=== PATIENT | female | born 1990 | race American Indian/Alaskan Native ===

== ENCOUNTER 2017-10-08 12:50 | Emergency (ER) | payer MEDICAID ==
[2017-10-08] MEDS ORDERED: ZOFRAN IV ONE (16:02)
[2017-10-08] MEDS ORDERED: TORADOL IV ONE (16:02)
[2017-10-08] MEDS ORDERED: NACL 0.9% 500 ML 500 ML ONE (16:11)
[2017-10-08] MEDS ORDERED: NACL 0.9% 500 ML 500 ML IV ONE (16:23)
[2017-10-08 17:08] LABS: Hematocrit 26.6 % (30.3-42.9); Hemoglobin 7.9 gm/dl (10.1-14.3); Mean Corpuscular HGB Conc 30 % (30-34); Mean Corpuscular Volume 73 fl (79-97); Platelet Count 426 K/mm3 (140-440); Red Blood Count 3.63 M/mm3 (3.65-5.03)
[2017-10-08 17:12] LABS: Mean Corpuscular Hemoglobin 22 pg (28-32)
[2017-10-08 18:01] LABS: Basophils % (Manual) 0 % (0.0-1.8); Eosinophils % (Manual) 0 % (0.0-4.3); Total Cells Counted 100
[2017-10-08 18:02] LABS: Anisocytosis 1+; Helmet Cells Rare
[2017-10-08 18:14] LABS: Bilirubin,Urine NEG (Negative); Blood,Urine MOD (Negative); Color,Urine Red (Yellow); Nitrite,Urine NEG (Negative); Protein,Urine >500 mg/dL (Negative); RBC,Urine > 182.0 /HPF (0.0-6.0); Urobilinogen,Urine < 2.0 mg/dL (<2.0)
--- NOTE | 2017-10-08 19:20 | Ultrasound Report ---
FINAL REPORT EXAM: US OB < = 14 WEEKS FETUS HISTORY: Passed clot TECHNIQUE: Real-time sonography was performed of the gravid uterus transabdominally and endovaginally and images are submitted for interpretation. PRIORS: None. FINDINGS: The uterus measures 10.3 x 4.9 x 5.2 cm. There is no evidence of IUP. The endometrium is thickened at 2.3 cm. Color Doppler does not show significant hypervascularity of the endometrium. The left ovary appears normal measuring 2.6 x 1.5 x 2.3 cm. The right ovary was not seen. IMPRESSION: No evidence of IUP. Endometrial thickening without strong evidence of retained products of conception. An intrauterine has not been confirmed and ectopic has not been excluded. Close clinical follow-up, serial quantitative beta HCG levels and follow-up ultrasound recommended.
--- NOTE | 2017-10-08 19:21 | Ultrasound Report ---
FINAL REPORT EXAM: US OB TRANSVAGINAL HISTORY: Passed clot TECHNIQUE: Real-time sonography was performed of the gravid uterus transabdominally and endovaginally and images are submitted for interpretation. PRIORS: None. FINDINGS: The uterus measures 10.3 x 4.9 x 5.2 cm. There is no evidence of IUP. The endometrium is thickened at 2.3 cm. Color Doppler does not show significant hypervascularity of the endometrium. The left ovary appears normal measuring 2.6 x 1.5 x 2.3 cm. The right ovary was not seen. IMPRESSION: No evidence of IUP. Endometrial thickening without strong evidence of retained products of conception. An intrauterine has not been confirmed and ectopic has not been excluded. Close clinical follow-up, serial quantitative beta HCG levels and follow-up ultrasound recommended.
--- NOTE | 2017-10-08 20:37 | Emergency Department Report ---
ED HPI - General Chief complaint: Vaginal Bleeding Stated complaint: MISCARRIAGE Time Seen by Provider: 10/08/17 19:47 Source: patient Mode of arrival: Ambulatory Limitations: No Limitations - History of Present Illness Initial comments: This is a 27-year-old patient who presents to the emergency room with vaginal bleeding. She states that she is . Today she stated that she began to have excessive vaginal bleeding and feels that she is losing the baby. She is still in the first trimester. She also admits to nausea and vomiting with some generalized abdominal pain. She has a history of diabetes. She also has had a gallbladder removed. MD Complaint: abdominal pain, vaginal bleeding -: Gradual, days(s) (1 day) Location: pelvis, abdomen Radiation: none Severity: moderate Quality: cramping, aching Consistency: intermittent Improves with: none Worsens with: none Associated symptoms: nausea/vomiting, vaginal bleeding, abdominal pain Vaginal bleeding: heavy, clots :: Yes Number of weeks : 12 OB History - Current : no complications Pre- care: followed by OB - Related Data : 2 Para: 0 Ab: 1 Previous Rx's Medication Instructions Recorded Last Taken Type Acetaminophen/Codeine [Tylenol #3] 1 tab PO Q6H PRN #15 tab 12/18/15 Unknown Rx Ibuprofen [Motrin 800 MG tab] 800 mg PO Q8HR PRN #30 tablet 12/18/15 Unknown Rx Doxycycline [Vibramycin CAP] 100 mg PO Q12HR #20 capsule 10/08/17 Unknown Rx Misoprostol 400 mcg PO Q4HR #4 tablet 10/08/17 Unknown Rx traMADol [Ultram 50 MG tab] 50 mg PO Q6HR PRN #10 tablet 10/08/17 Unknown Rx Allergies Allergy/AdvReac Type Severity Reaction Status Date / Time No Known Allergies Allergy Verified 12/18/15 01:19 ED Review of Systems ROS: Stated complaint: MISCARRIAGE Other details as noted in HPI Constitutional: see HPI. denies: chills, fever Eyes: denies: eye pain, eye discharge, vision change ENT: denies: ear pain, throat pain Respiratory: denies: cough, shortness of breath, wheezing Cardiovascular: denies: chest pain, palpitations Endocrine: no symptoms reported Gastrointestinal: abdominal pain, nausea, vomiting. denies: diarrhea Genitourinary: denies: urgency, dysuria, discharge Musculoskeletal: denies: back pain, joint swelling, arthralgia Skin: denies: rash, lesions Neurological: denies: headache, weakness, paresthesias Psychiatric: denies: anxiety, depression Hematological/Lymphatic: denies: easy bleeding, easy bruising ED Past Medical Hx - Past Medical History Hx Diabetes: Yes Hx Kidney Stones: Yes Additional medical history: Anemia - Surgical History Hx Cholecystectomy: Yes - Social History Smoking Status: Never Smoker Substance Use Type: None - Medications Home Medications: Home Medications Medication Instructions Recorded Confirmed Last Taken Type Acetaminophen/Codeine [Tylenol #3] 1 tab PO Q6H PRN #15 tab 12/18/15 Unknown Rx Ibuprofen [Motrin 800 MG tab] 800 mg PO Q8HR PRN #30 tablet 12/18/15 Unknown Rx Doxycycline [Vibramycin CAP] 100 mg PO Q12HR #20 capsule 10/08/17 Unknown Rx Misoprostol 400 mcg PO Q4HR #4 tablet 10/08/17 Unknown Rx traMADol [Ultram 50 MG tab] 50 mg PO Q6HR PRN #10 tablet 10/08/17 Unknown Rx ED Physical Exam - General Limitations: No Limitations General appearance: alert, in no apparent distress - Head Head exam: Present: atraumatic, normocephalic - Eye Eye exam: Present: normal appearance, PERRL, EOMI - ENT ENT exam: Present: normal exam - Neck Neck exam: Present: normal inspection - Respiratory Respiratory exam: Present: normal lung sounds bilaterally - Cardiovascular Cardiovascular Exam: Present: regular rate, normal rhythm - GI/Abdominal GI/Abdominal exam: Present: soft, normal bowel sounds - Extremities Exam Extremities exam: Present: normal inspection, full ROM - Back Exam Back exam: Present: normal inspection, full ROM - Neurological Exam Neurological exam: Present: alert, oriented X3 - Psychiatric Psychiatric exam: Present: normal affect, normal mood - Skin Skin exam: Present: warm, dry, intact ED Course Vital Signs 10/08/17 15:55 Temperature 97.4 F L Pulse Rate 88 Respiratory 16 Rate Blood Pressure 107/67 O2 Sat by Pulse 100 Oximetry - Reevaluation(s) Reevaluation #1: 10/08/17 20:47 I reviewed the findings of the ultrasound with the patient. There is no viable intrauterine at this time. I explained that her hemoglobin count was also low at 7.9. I'm awaiting a callback from the [facility] personnel records clerk [employer] physician. 10/08/17 22:28 I discussed the case with the [facility] [employer] physician. He stated that the patient on Cytotec 400 mg by mouth here in the ER and then every 4 hours for 2 more doses. We will also start the patient on doxycycline 100 mg by mouth twice a day for 10 days. For pain we'll give her tramadol to use when necessary. She is to follow-up with her [facility] clinic next week. She has any other concerns then she may return to the emergency room as needed. With regards to her leukocytosis and her anemia, the doxycycline will be given for the leukocytosis and the anemia is apparently something that she has chronically. If her bleeding persist then it is advised that she returns to the ER accordingly. ED Medical Decision Making - Lab Data Result diagrams: 10/08/17 16:46 10/08/17 16:46 Critical care attestation.: If time is entered above; I have spent that time in minutes in the direct care of this critically ill patient, excluding procedure time. ED Disposition Clinical Impression: Inevitable complete miscarriage without complication, Inevitable spontaneous Anemia Qualifiers: Anemia type: other cause Other causes of anemia: acute posthemorrhagic Qualified Code(s): D62 - Acute posthemorrhagic anemia Disposition: - TO HOME OR SELFCARE Is pt being admited?: No Does the pt Need Aspirin: No Condition: Stable Instructions: Spontaneous Miscarriage (ED), Misoprostol (By mouth) Additional Instructions: YOU MUST TAKE YOUR PRESCRIPTION TO GET FILLED TONIGHT AND TAKE 2 TABLETS FOUR HOURS APART. FOLLOW UP WITH YOUR OB PHYSICIAN NEXT WEEK. Prescriptions: Doxycycline [Vibramycin CAP] 100 mg PO Q12HR #20 capsule Misoprostol 400 mcg PO Q4HR #4 tablet traMADol [Ultram 50 MG tab] 50 mg PO Q6HR PRN #10 tablet PRN Reason: Pain Referrals: PRIMARY CARE,MD [Primary Care Provider] - 3-5 Days
[2017-10-08 21:30] LABS: Alanine Aminotransferase 24 units/L (7-56); Albumin 4.7 g/dL (3.9-5); BUN/Creatinine Ratio 14; Blood Urea Nitrogen 7 mg/dL (7-17); Calcium 9.8 mg/dL (8.4-10.2); Hemolysis Index 2
--- NOTE | 2017-10-08 22:14 | Short Stay Summary ---
Short Stay Documentation Date of service: 10/08/17 Narrative H&P: C/O: Vaginal bleeding Asked to see this 27-year-old at 11+5 weeks by LMP who presents with vaginal bleeding and painful cramps this a.m. She is a [employer] patient has had only 1 visit to clinic. She had an ultrasound in the clinic with no IUP seen, she is unsure of her beta-hCG. In the emergency room, her vitals have been stable. Her hemoglobin is 8 Ultrasound obtained shows no IUP, beta-hCG is ~ 1600 She denies any prior history of ectopic, no history of tubal surgery or STDs per patient She is a smoker Not on control Gynhx:No STD, s/p TAB # 2 Medhx:None Sughx:Cholecystectomy Obhx:As above Meds:None ALL:NKDA ROS: Still having painful contractions On speculum exam, she has obvious products of conception protruding from the cervix filling the vagina A: SAB P: -Was able to evacuate some products of conception during my exam with the speculum, no active bleeding noted afterwards. -Patient will receive 400 g misoprostol now then 400 g every 4 hours 2 more doses. -Doxycycline 100mg BID x 10 days -She will follow up in clinic -Discussed above with ED physician - History Past Medical History: No medical history Past Surgical History: cholecystectomy Social history: single, smoking, no prescription drug abuse, no IV drug use - Allergies and Medications Current Medications: Allergies No Known Allergies Allergy (Verified 12/18/15 01:19) Home Medications Medication Instructions Recorded Confirmed Last Taken Type Acetaminophen/Codeine [Tylenol #3] 1 tab PO Q6H PRN #15 tab 12/18/15 Unknown Rx Ibuprofen [Motrin 800 MG tab] 800 mg PO Q8HR PRN #30 tablet 12/18/15 Unknown Rx - Physical exam General appearance: no acute distress, disheveled Lungs: Clear to auscultation, Normal air movement Heart: Regular rate, Normal S1, Normal S2 Female Genitourinary: normal Extremities: no ischemia Neurological: Normal gait, Normal speech, Strength at 5/5 X4 ext - Brief post op/procedure progress note Date of procedure: 10/08/17 Pre-op diagnosis: Missed AB Post-op diagnosis: same Procedure: Removal of retained Products in the ED Anesthesia: none Findings: Parous OS with obvious protruding POC; no active bleeding Surgeon: GRETA ALVAREZ Estimated blood loss: none Pathology: list (POC) Specimen disposition: to lab Condition: stable - Disposition Condition at discharge: Stable Short Stay Discharge Plan Follow up with: PRIMARY CAREMD [Primary Care Provider] - 3-5 Days
[2017-10-08] MEDS ORDERED: CYTOTEC PO ONE (22:16)
[2017-10-08 23:34] VITALS: BP 118/66
== END 2017-10-08 23:39 | disposition home or self-care (01) ==
LOC: ED 12:50
DX: O03.9 Complete or unspecified spontaneous abortion without complication (principal); O21.9 Vomiting of pregnancy, unspecified; D62 Acute posthemorrhagic anemia; D64.9 Anemia, unspecified; R11.2 Nausea with vomiting, unspecified; E11.9 Type 2 diabetes mellitus without complications
CPT/HCPCS: 36415; 76801; 76817; 80053; 81001; 84702; 85007; 85025; 86850; 86870; 86900; 86901; 96361; 96374; 96375; 99284; J1885; J2405; J7040

== ENCOUNTER 2018-09-25 18:40 | Inpatient (IN) | payer OTHER ==
[2018-09-25] MEDS ORDERED: LACTATED RINGERS 1,000 ML IV SCH (20:00)
[2018-09-25] MEDS ORDERED: LACTATED RINGERS 1,000 ML ONE (20:01)
[2018-09-26] MEDS ORDERED: SUBLIMAZE IV ONE (00:06)
[2018-09-26] MEDS ORDERED: AMBIEN PO PRN (00:07)
--- NOTE | 2018-09-26 00:07 | Ultrasound Report ---
FINAL REPORT PROCEDURE: US OB LIMITED TECHNIQUE: Real-time limited sonographic examination was performed for evaluation of size, pos ition, heartbeat, fluid volume for each fetus with image documentation (1 or more fetuses). CPT 7681 5 HISTORY: well being COMPARISON: No prior studies are available for comparison. FINDINGS: There is a single fetus in a cephalic presentation. heart rate 162 beats per minute. The 4 quad rant amniotic fluid volume measurement total 10.5 centimeters. No further measurements are obtained with this study. IMPRESSION: Single fetus with a vertex presentation. Four quadrant amniotic fluid volume total 10.5 centimeter
--- NOTE | 2018-09-26 00:07 | Ultrasound Report ---
FINAL REPORT PROCEDURE: US OB BPP WO NON-STRESS TECHNIQUE: Sonographic evaluation for breathing, movement, tone, and amniotic flui d volume was performed. CPT 65056 HISTORY: well being COMPARISON: No prior studies are available for comparison. FINDINGS: Amniotic fluid volume: Normal-score 2. At least one vertical pocket >2 cm or more in vertical axis . breathing: Normal-score 2. movement: Normal-score 2. tone: Normal. Score: 8 of 8. IMPRESSION: Normal biophysical profile.
[2018-09-26] MEDS ORDERED: STADOL IV PRN (03:24)
[2018-09-26] MEDS ORDERED: SUBLIMAZE IV PRN (03:24)
[2018-09-26] MEDS: LACTATED RINGERS 1,000 ML IV SCH ×3 (03:43→19:10)
[2018-09-26 05:59] LABS: Mean Corpuscular HGB Conc 33 % (30-34); Mean Corpuscular Volume 97 fl (79-97); Platelet Count 246 K/mm3 (140-440); Red Blood Count 4.04 M/mm3 (3.65-5.03); Red Cell Distribution Width 13.2 % (13.2-15.2)
[2018-09-26] MEDS ORDERED: MINERAL OIL PO PRN (09:00)
[2018-09-26] MEDS ORDERED: BRETHINE SUB-Q PRN (09:00)
[2018-09-26] MEDS ORDERED: BRETHINE IVP PRN (09:00)
[2018-09-26] MEDS ORDERED: PITOCin/NS 20 UNIT/1000ML DRIP 20 UNITS/1,000 ML BAG IV SCH (09:00)
[2018-09-26] MEDS ORDERED: XYLOCAINE 2% INFILTRATI NR (09:00)
[2018-09-26] MEDS ORDERED: PITOCin/NS 30 UNIT/500ML 30 UNITS/500 ML BAG IV SCH ×2 (09:00)
--- NOTE | 2018-09-26 11:42 | History and Physical Report ---
History of Present Illness Date of examination: 09/26/18 (10:47) Date of admission: 09/26/18 00:13 Chief complaint: Contractions History of present illness: 28 AA Fe , MARTHA 09/30/2018 (LMP), 39weeks 2 days presents in spontaneous labor. Apositive, Rubella Immune, GBS negative Pt initiated early care with [facility] at 6 weeks. She has been co-managed with [facility] and hematology d/t being underweight and having severe anemia (FeS04 325mg QID). She has poor dentition. Past History Past Medical History: no pertinent history Past Surgical History: cholecystectomy (2014), other (EAB x2 white and by the glass every as a day last week) STUDENT SERVICES COORDINATOR History: denies: abnormal PAP smear, chlamydia, gonorrhea, hepatitis B, hepatitis C, herpes, HIV, syphilis, trichomonas Family/Genetic History: none (Adopted; no family history) Social history: single, lives with family, full code. denies: smoking, alcohol abuse, prescription drug abuse, IV drug use - Obstetrical History Expected Date of Delivery: 09/30/18 Actual Gestation: 39 Week(s) 3 Day(s) : 4 Para: 0 Hx # Term Pregnancies: 0 Number of Pregnancies: 0 Spontaneous Abortions: 1 Induced : 2 Number of Living Children: 0 Medications and Allergies Allergies Allergy/AdvReac Type Severity Reaction Status Date / Time No Known Allergies Allergy Verified 07/13/18 13:08 Home Medications Medication Instructions Recorded Confirmed Last Taken Type Ferrous Sulfate [Feosol] 325 mg PO QDAY 07/19/18 07/19/18 07/19/18 History Vit-Fe Fumar-FA [ 1 tab PO QDAY 07/19/18 07/19/18 07/19/18 History Vitamin] Active Meds: Active Medications Butorphanol Tartrate (Stadol) 2 mg IV Q3H PRN PRN Reason: Labor Pain Last Admin: 09/26/18 03:35 Dose: 2 mg Documented by: Ephedrine Sulfate (Ephedrine Sulfate) 10 mg IV Q2M PRN PRN Reason: Hypotension Fentanyl (Sublimaze) 100 mcg IV Q3H PRN PRN Reason: Labor Pain Last Admin: 09/26/18 06:16 Dose: 100 mcg Documented by: Lactated Ringer's (Lactated Ringers) 1,000 mls @ 125 mls/hr IV DIRECT JOSY Last Admin: 09/26/18 03:43 Dose: 125 mls/hr Documented by: Oxytocin/Sodium Chloride (Pitocin/Ns 20 Unit/1000ml Drip) 20 units in 1,000 mls @ 125 mls/hr IV DIRECT JOSY Oxytocin/Sodium Chloride (Pitocin/Ns 30 Unit/500ml) 30 units in 500 mls @ 1 mls/hr IV TITR JOSY; Protocol Oxytocin/Sodium Chloride (Pitocin/Ns 30 Unit/500ml) 30 units in 500 mls @ 2 mls/hr IV TITR JOSY; Protocol Last Titration: 09/26/18 10:07 Dose: 4 ml/hr, 4 mls/hr Documented by: Lidocaine (Xylocaine 2%) 20 ml INFILTRATI ONCE NR Stop: 09/27/18 08:59 Mineral Oil (Mineral Oil) 30 ml PO QHS PRN PRN Reason: Constipation Terbutaline Sulfate (Brethine) 0.25 mg SUB-Q ONCE PRN PRN Reason: Hyperstimulation/Hypertonicity Terbutaline Sulfate (Brethine) 0.25 mg IVP ONCE PRN PRN Reason: Hyperstimulation/Hypertonicity Zolpidem Tartrate (Ambien) 10 mg PO QHS PRN PRN Reason: Insomnia Last Admin: 09/26/18 01:42 Dose: 10 mg Documented by: Review of Systems Cardiovascular: no chest pain, no shortness of breath Respiratory: no shortness of breath Breasts: normal Gastrointestinal: no abdominal pain, no nausea, no vomiting, no diarrhea, no constipation Genitourinary: normal appearance, contractions, no leakage of fluid, no genital sores Integumentary: no rash, no sores (at her child), no lesions - Vital Signs Vital signs: Vital Signs Pulse BP 67 111/68 09/25/18 19:15 09/25/18 19:15 Temp Pulse Resp BP Pulse Ox 99.4 F 81 17 112/70 100 09/26/18 09:10 09/26/18 11:35 09/26/18 09:10 09/26/18 09:11 09/26/18 11:35 - Physical Exam Breasts: Positive: normal Cardiovascular: Regular rate, Normal S1, Normal S2, No murmurs Lungs: Positive: Clear to auscultation, Normal air movement Abdomen: Positive: normal appearance, soft, normal bowel sounds. Negative: distention Genitourinary (Female): Positive: normal external genitalia, normal perenium Vulva: both: normal Uterus: Positive: enlarged (gravid) Anus/Rectum: Positive: normal perianal skin Extremities: Positive: normal Deep Tendon Reflex Grade: Normal +2 - Obstetrical FHR: category 1 Uterine Contraction Monitor Mode: External Cervical Dilatation: 4 (AROM 09/26 @ 10:47; clear fluid. ) Cervical Effacement Percentage: 90 station: -2 Uterine Contraction Frequency (min): 2-6 Uterine Contraction Pattern: Regular Uterine Tone Measurement Phase: Resting Uterine Contraction Intensity: Moderate Results Result Diagrams: 09/26/18 05:36 Abnormal lab results 09/26/18 Range/Units 05:36 WBC 11.5 H (4.5-11.0) K/mm3 All other labs normal. Assessment and Plan A: Term IUP at 39w2d Category 1 tracing GBS Negative Active labor P: Admit to L&D; Routine Labor orders May have IV pain med/epidural if desires Anticipate
[2018-09-26] MEDS ORDERED: NARCAN 2 MG/2 ML IV PRN (12:04)
--- NOTE | 2018-09-26 12:10 | Anesthesia Day of Surgery ---
Anesthesia Day of Surgery - Day of Surgery Patient Examined: Yes Patient H&P Reviewed: Yes Patient is NPO: Yes Beta Blockers: No Cardiac Clearance: No Pulmonary Clearance: No
--- NOTE | 2018-09-26 12:13 | Anesthesia Consultation ---
Anesthesia Consult and Med Hx Date of service: 09/26/18 - Airway Anesthetic Teeth Evaluation: Poor (front poor denitition and missing teeth ) ROM Head & Neck: Adequate Mental/Hyoid Distance: Adequate Mallampati Class: Class II Intubation Access Assessment: Probably Good - Pulmonary Exam CTA: Yes - Cardiac Exam Cardiac Exam: No Murmur - Pre-Operative Health Status ASA Pre-Surgery Classification: ASA1, ASA2 (Anemia) Proposed Anesthetic Plan: Epidural - Pulmonary Hx Asthma: No COPD: No Hx Pneumonia: No - Cardiovascular System Hx Hypertension: No - Central Nervous System Hx Seizures: No Hx Psychiatric Problems: No - Endocrine Hx Renal Disease: No Hx End Stage Renal Disease: No Hx Hypothyroidism: No Hx Hyperthyroidism: No - Hematic Hx Anemia: Yes (iron daily) Hx Sickle Cell Disease: No - Other Systems Hx Alcohol Use: No
[2018-09-26] MEDS: fentaNYL-BUPIV 2 MCG/ML-0.125% 200 MCG/100 ML BAG EPIDURAL SCH ×2 (12:30→20:05)
--- NOTE | 2018-09-26 17:58 | Progress Note ---
Assessment and Plan A: Term IUP at 39w2d Category 1 tracing GBS Negative Active labor Comfortable with epidural Pitocin 16 mu P: Continue Routine Labor orders Anticipate Subjective - Subjective Date of service: 09/26/18 Principal diagnosis: term IUP, active labor Interval history: 28 AA Fe , MARTHA 09/30/2018 (LMP), 39weeks 2 days presents in spontaneous labor. Apositive, Rubella Immune, GBS negative Pt initiated early care with [facility] at 6 weeks. She has been co-managed with [facility] and hematology d/t being underweight and having severe anemia (FeS04 325mg QID). She has poor dentition. Patient reports: loss of fluid, vaginal bleeding, movement normal, contractions Objective - Vital Signs Vital Signs: Vital Signs - 12hr 09/26/18 09/26/18 09/26/18 09:10 09:11 11:35 Temperature 99.4 F Pulse Rate 80 81 Respiratory 17 Rate Blood Pressure 112/70 O2 Sat by Pulse 100 Oximetry 09/26/18 09/26/18 09/26/18 11:40 11:43 11:45 Temperature Pulse Rate 69 68 64 Respiratory Rate Blood Pressure 152/86 137/83 O2 Sat by Pulse 97 98 Oximetry 09/26/18 09/26/18 09/26/18 11:46 11:49 11:50 Temperature Pulse Rate 65 71 67 Respiratory Rate Blood Pressure 139/85 127/83 O2 Sat by Pulse 98 Oximetry 09/26/18 09/26/18 09/26/18 11:55 11:57 12:00 Temperature Pulse Rate 77 72 103 H Respiratory Rate Blood Pressure 114/56 O2 Sat by Pulse 96 100 Oximetry 09/26/18 09/26/18 09/26/18 12:05 12:10 12:14 Temperature Pulse Rate 91 H 99 H 66 Respiratory Rate Blood Pressure 110/52 O2 Sat by Pulse 99 96 Oximetry 09/26/18 09/26/18 09/26/18 12:15 12:18 12:20 Temperature Pulse Rate 74 60 71 Respiratory Rate Blood Pressure O2 Sat by Pulse 100 93 99 Oximetry 09/26/18 09/26/18 09/26/18 12:25 12:30 12:35 Temperature Pulse Rate 65 90 60 Respiratory Rate Blood Pressure O2 Sat by Pulse 100 100 100 Oximetry 09/26/18 09/26/1809/26/19 12:37 12:40 12:45 Temperature Pulse Rate 67 62 61 Respiratory Rate Blood Pressure 113/86 O2 Sat by Pulse 93 99 98 Oximetry 09/26/18 09/26/18 09/26/18 12:50 12:55 13:00 Temperature 99.1 F Pulse Rate 66 62 67 Respiratory 17 Rate Blood Pressure O2 Sat by Pulse 99 97 97 Oximetry 09/26/18 09/26/18 09/26/18 13:05 13:08 13:10 Temperature Pulse Rate 83 70 65 Respiratory Rate Blood Pressure 97/53 O2 Sat by Pulse 97 98 Oximetry 09/26/18 09/26/18 09/26/18 13:15 13:20 13:25 Temperature Pulse Rate 64 66 85 Respiratory Rate Blood Pressure O2 Sat by Pulse 98 96 97 Oximetry 09/26/18 09/26/18 09/26/18 13:30 13:35 13:37 Temperature Pulse Rate 86 67 64 Respiratory Rate Blood Pressure 106/59 O2 Sat by Pulse 97 97 Oximetry 09/26/18 09/26/18 09/26/18 13:40 13:45 13:50 Temperature Pulse Rate 67 75 64 Respiratory Rate Blood Pressure O2 Sat by Pulse 97 97 96 Oximetry 09/26/18 09/26/18 09/26/18 13:55 13:59 14:00 Temperature Pulse Rate 69 64 65 Respiratory Rate Blood Pressure O2 Sat by Pulse 96 94 96 Oximetry 09/26/18 09/26/18 09/26/18 14:05 14:07 14:09 Temperature Pulse Rate 65 70 82 Respiratory Rate Blood Pressure 140/54 O2 Sat by Pulse 96 94 Oximetry 09/26/18 09/26/18 09/26/18 14:10 14:15 14:20 Temperature Pulse Rate 66 69 70 Respiratory Rate Blood Pressure O2 Sat by Pulse 96 95 96 Oximetry 09/26/18 09/26/18 09/26/18 14:25 14:27 14:30 Temperature Pulse Rate 69 73 66 Respiratory Rate Blood Pressure O2 Sat by Pulse 96 94 96 Oximetry 09/26/18 09/26/18 09/26/18 14:35 14:40 14:45 Temperature Pulse Rate 78 80 76 Respiratory Rate Blood Pressure O2 Sat by Pulse 96 95 94 Oximetry 09/26/18 09/26/18 09/26/18 14:46 14:50 14:52 Temperature Pulse Rate 78 70 71 Respiratory Rate Blood Pressure O2 Sat by Pulse 94 95 94 Oximetry 09/26/18 09/26/18 09/26/18 14:55 14:57 15:00 Temperature Pulse Rate 64 79 71 Respiratory Rate Blood Pressure O2 Sat by Pulse 96 94 96 Oximetry 09/26/18 09/26/18 09/26/18 15:05 15:10 15:15 Temperature Pulse Rate 70 79 74 Respiratory Rate Blood Pressure O2 Sat by Pulse 97 96 96 Oximetry 09/26/18 09/26/18 09/26/18 15:19 15:20 15:25 Temperature Pulse Rate 69 82 70 Respiratory Rate Blood Pressure O2 Sat by Pulse 94 96 96 Oximetry 09/26/18 09/26/18 09/26/18 15:30 15:35 15:39 Temperature Pulse Rate 67 78 66 Respiratory Rate Blood Pressure 107/67 O2 Sat by Pulse 98 97 Oximetry 09/26/18 09/26/18 09/26/18 15:40 15:45 15:50 Temperature Pulse Rate 78 74 72 Respiratory Rate Blood Pressure O2 Sat by Pulse 98 98 100 Oximetry 09/26/18 09/26/18 09/26/18 15:55 16:00 16:05 Temperature Pulse Rate 65 66 68 Respiratory Rate Blood Pressure O2 Sat by Pulse 100 100 100 Oximetry 09/26/18 09/26/18 09/26/18 16:07 16:10 16:15 Temperature Pulse Rate 65 72 69 Respiratory Rate Blood Pressure 113/70 O2 Sat by Pulse 100 100 Oximetry 09/26/18 09/26/18 09/26/18 16:20 16:22 16:25 Temperature Pulse Rate 74 79 78 Respiratory Rate Blood Pressure O2 Sat by Pulse 98 89 80 L Oximetry 09/26/18 09/26/18 09/26/18 16:30 16:35 16:37 Temperature Pulse Rate 69 70 65 Respiratory Rate Blood Pressure 103/57 O2 Sat by Pulse 98 100 Oximetry 09/26/18 09/26/18 09/26/18 16:40 16:45 16:50 Temperature Pulse Rate 67 70 64 Respiratory Rate Blood Pressure O2 Sat by Pulse 99 100 98 Oximetry 09/26/18 09/26/18 09/26/18 16:55 17:00 17:05 Temperature Pulse Rate 67 72 72 Respiratory Rate Blood Pressure O2 Sat by Pulse 98 98 98 Oximetry 09/26/18 09/26/18 09/26/18 17:08 17:10 17:15 Temperature Pulse Rate 80 74 75 Respiratory Rate Blood Pressure 110/59 O2 Sat by Pulse 100 100 Oximetry 09/26/18 09/26/18 09/26/18 17:20 17:25 17:30 Temperature Pulse Rate 77 74 73 Respiratory Rate Blood Pressure O2 Sat by Pulse 100 100 100 Oximetry 09/26/18 09/26/18 09/26/18 17:35 17:37 17:40 Temperature Pulse Rate 71 71 71 Respiratory Rate Blood Pressure 102/58 O2 Sat by Pulse 100 99 Oximetry 09/26/18 09/26/18 17:45 17:50 Temperature Pulse Rate 76 73 Respiratory Rate Blood Pressure O2 Sat by Pulse 100 100 Oximetry - Exam Breasts: normal Cardiovascular: Regular rate, Normal S1, Normal S2, No murmurs Abdomen: Present: normal appearance, soft, normal bowel sounds. Absent: distention, tenderness Uterus: Present: other (gravid) FHR: auscultation normal, category 1 Uterine Contraction Monitor Mode: External Cervical Dilatation: 6 (Normal bloody show noted with exam) Cervical Effacement Percentage: 90 station: 0 Uterine Contraction Frequency (min): 1-3 Uterine Contraction Duration: 60-120 Uterine Contraction Pattern: Regular Uterine Tone Measurement Phase: Resting Uterine Contraction Intensity: Strong/Firm Extremities: normal Deep Tendon Reflex Grade: Normal +2 - Labs Labs: Abnormal Labs 09/26/18 05:36 WBC 11.5 H Laboratory Results - last 24 hr 09/26/18 09/26/18 09/26/18 05:36 05:36 05:36 WBC 11.5 H RBC 4.04 Hgb 13.0 Hct 39.0 MCV 97 MCH 32 MCHC 33 RDW 13.2 Plt Count 246 RPR Nonreactive Blood Type A POSITIVE Antibody Screen Positive Prewarmed Antibody Srcn Negative Antibody Identification Negative
[2018-09-27] MEDS ORDERED: BENADRYL PO PRN (01:03)
[2018-09-27] MEDS ORDERED: TUCKS PAD TP PRN (01:03)
[2018-09-27] MEDS ORDERED: NORCO 5/325 PO PRN (01:03)
[2018-09-27] MEDS ORDERED: DULCOLAX PR PRN (01:03)
[2018-09-27] MEDS ORDERED: TYLENOL PO PRN (01:03)
[2018-09-27] MEDS ORDERED: PHENERGAN PO PRN (01:03)
[2018-09-27] MEDS ORDERED: LANSINOH TP PRN (01:03)
[2018-09-27] MEDS ORDERED: MILK OF MAGNESIA PO PRN (01:03)
[2018-09-27] MEDS ORDERED: ZOFRAN IV PRN (01:03)
--- NOTE | 2018-09-27 01:14 | Procedure Note ---
OB Delivery Note - Delivery Date of Delivery: 09/27/18 (00:46) Surgeon: TASH ROLDAN ([place]) Estimated blood loss: 200cc - Vaginal Delivery presentation: vertex Delivery position: OA Intrapartum events: febrile- temp >100.3 (100.4) Delivery induction: none Delivery augmentation: rupture of membranes, pitocin Delivery monitor: external FHT, external uterine Route of delivery: (00:46) Delivery placenta: spontaneous (00:52) Delivery cord: nuchal cord (x1 loose), 3 umbilical vessels Episiotomy: none Delivery laceration: none Anesthesia: intravenous, epidural Delivery comments: viable female SHARAD, loose nuchal delivered intact via somersault maneuver at 00:46 over intact perineum. dried, placed [id number] on mothers abdomen. Delayed cord clamping then cut by FOB with my guidance. Spontaneous moore delivery of intact placenta, 3VC at 00:52. Sent to pathology for maternal temp of 100.4. FF@U-2. Small left periurethral laceration left unrepaired. Approximates well. no bleeding. FF@U-2. EBL 200cc. Infant and mother left in stable condition in L&D. - A at 1 minute: 8 at 5 minutes: 9 Gender: Female (2738grams, 6lbs 1oz, 18.5")
[2018-09-27] MEDS ORDERED: TYLENOL PO ONE (01:22)
[2018-09-27] MEDS ORDERED: SODIUM CHLORIDE FLUSH SYRINGE 10 ML IV NR (02:00)
[2018-09-27] MEDS: IBUPROFEN PO SCH ×4 (02:08→18:30)
[2018-09-27 13:09] LABS: Hematocrit 33.5 % (30.3-42.9); Hemoglobin 11.3 gm/dl (10.1-14.3)
[2018-09-28] MEDS: IBUPROFEN PO SCH ×4 (00:04→18:00)
[2018-09-28 01:25] LABS: Hematocrit 32.4 % (30.3-42.9); Hemoglobin 10.9 gm/dl (10.1-14.3)
--- NOTE | 2018-09-28 10:15 | Progress Note ---
Assessment and Plan A: PP Day #1 Stable P: Follow Routine Orders Depo Provera prior to discharge D/C Home today per patient request RTO in 6 Weeks Subjective - Subjective Date of service: 09/28/18 Principal diagnosis: term IUP, active labor Patient reports: appetite normal, voiding normally, pain well controlled, flatus, ambulating normally [place]: doing well, bottle feeding (and ) Objective - Vital Signs Latest vital signs: Vital Signs Temp Pulse Resp BP BP Pulse Ox 09/28/18 08:45 97.5 F L 60 22 100/66 95 09/28/18 00:00 98.4 F 63 16 114/72 09/27/18 20:00 98.6 F 72 16 118/69 09/27/18 16:28 98.1 F 57 L 18 109/65 99 Intake and Output 09/27/18 09/28/18 09/28/18 22:59 06:59 14:59 Intake Total 900 120 Balance 900 120 Intake: Oral 360 Intake, Free Water 540 120 Other: Total, Intake Amount 360 # Voids Void 1 - Exam Breasts: Present: normal Cardiovascular: Present: Regular rate Lungs: Present: Clear to auscultation, Normal air movement Abdomen: Present: normal appearance, soft, normal bowel sounds Uterus: Present: normal, firm, fundal height below umbilicus Extremities: Present: normal
--- NOTE | 2018-09-28 10:17 | Discharge Summary ---
Providers - Providers Date of Admission: 09/26/18 00:13 Date of discharge: 09/28/18 Attending physician: KAMILA GUERRA MD Primary care physician: KAMILA GUERRA MD Hospitalization Reason for admission: active labor Delivery: Episiotomy: none Laceration: none Other procedures: none complications: none Discharge diagnosis: IUP at term delivered [place] baby: female Condition at discharge: Good Disposition: DC-01 TO HOME OR SELFCARE Plan - Provider Discharge Summary Activity: routine, no sex for 6 weeks, no heavy lifting 4 weeks, no strenuous exercise Diet: routine Instructions: routine Additional instructions: [] Smoking cessation referral if applicable(refer to patient education folder for contact #) [] Refer to [facility] Book[facility] Call your doctor immediately for: * Fever > 100.5 * Heavy vaginal bleeding ( >1 pad per hour) * Severe persistent headache * Shortness of breath * Reddened, hot, painful area to leg or breast * Drainage or odor from incision. * Keep incision clean and dry at all times and follow doctor's instructions regarding bathing/showering - Follow up plan Follow up: KAMILA GUERRA MD [Primary Care Provider] - 6 Weeks
[2018-09-28] MEDS ORDERED: DEPO-PROVERA (CONTRACEPTION) IM NR (10:30)
[2018-09-29] MEDS: IBUPROFEN PO SCH ×2 (02:08→12:12)
[2018-09-29 13:16] VITALS: BP 110/75
== END 2018-09-29 13:30 | disposition home or self-care (01) | DRG 775 ==
LOC: TRG 18:40 → OBSVTOIN 09-26 00:13 → LD 09-26 00:13 → OB 09-27 02:59
PROVIDERS: ADMIT Obstetrics & Gynecology; ATTEND Obstetrics & Gynecology
PROC: 10907ZC Drainage of Amniotic Fluid, Therapeutic from Products of Conception, Via Natural or Artificial Opening (ICD-10-PCS; 2018-09-26)
PROC: 10E0XZZ Delivery of Products of Conception, External Approach (ICD-10-PCS; principal; 2018-09-27)
PROC: 3E0R3BZ Introduction of Anesthetic Agent into Spinal Canal, Percutaneous Approach (ICD-10-PCS; 2018-09-27)
PROC: 00HU33Z Insertion of Infusion Device into Spinal Canal, Percutaneous Approach (ICD-10-PCS; 2018-09-27)
DX: O69.81X0 Labor and delivery complicated by cord around neck, without compression, not applicable or unspecified (principal); O71.82 Other specified trauma to perineum and vulva; O99.02 Anemia complicating childbirth; D64.9 Anemia, unspecified; Z3A.39 39 weeks gestation of pregnancy; Z37.0 Single live birth; Z90.49 Acquired absence of other specified parts of digestive tract
CPT/HCPCS: 36415; 76815; 76819; 85014; 85018; 85027; 86592; 86850; 86870; 86900; 86901; 88307; G0378; A6250; J0595; J1050; J2590; J3010; J7120

== ENCOUNTER 2019-08-31 12:15 | Emergency (ER) | payer MEDICAID, OTHER ==
[2019-08-31 14:07] VITALS: BP 144/101
[2019-08-31] MEDS ORDERED: IBUPROFEN 600 MG TAB PO ONE ×2 (14:08→14:11)
--- NOTE | 2019-08-31 14:13 | Emergency Department Report ---
Chief Complaint: Dental/Oral Stated Complaint: TOOTHACHE Time Seen by Provider: 08/31/19 14:03 - HPI History of Present Illness: This is a 29-year-old female that presents to the ER with dental pain and swollen gums for years with worsening pain for 4 days. Patient reports taking pain medication without relief. Reports worsening swelling of upper gums. Patient denies any facial swelling. Denies following up with a dentist. Denies any fever, chills, headache, nausea, vomiting, chest pain or SOB. Denies any other complaints. Denies any allergies. - ROS Review of Systems: ROS: Stated complaint: Dental pain Other details as noted in HPI Constitutional: dental pain ENT: dental pain denies: ear pain, throat pain, congestion. Respiratory: denies: shortness of breath, wheezing, cough. Cardiovascular: denies: palpitations, chest pain. Gastrointestinal: denies: abdominal pain, nausea, diarrhea Musculoskeletal: myalgia. denies: back pain, joint swelling, arthralgia Skin: denies: rash, lesions Neurological: denies: headache, weakness, paresthesias Psychiatric: denies: anxiety, depression - Exam Vital Signs: Vital Signs 08/31/19 14:03 Temperature 98.4 F Pulse Rate 97 H Respiratory 18 Rate Blood Pressure 144/101 O2 Sat by Pulse 99 Oximetry Physical Exam: - Exam General: Vital signs noted. No distress. Alert and acting appropriately. HEENT: Gingiva swelling upper TTP, #4 to #13 grinded down to gum line with dark brown dental caries. Yes Moist Mucous Membranes, No Rhinorrhea, No Pharyngeal Erythema, No Pharyngeal Exudates, No Conjuctival Injection, No Frontal Tenderness, No Maxillary Tenderness Ear: Neither TM Bulge, Neither TM Erythema, Neither EAC Pain, Neither EAC Discharge Neck: Yes Supple, No Adenopathy Lungs: Yes Good Air Exchange, No Wheezes, No Ronchi, No Stridor, No Cough, No Labored Respirations, No Retractions, No Use of Accessory Muscles, No Other Abnormal Lung Sounds Heart: Yes Regular, No Murmur Abdomen: Yes Normal Bowel Sounds, No Tenderness, No Peritoneal Signs Skin: No Rash, No Edema Neurologic: Alert and oriented, no deficits. MSE screening note: Focused history and physical exam performed. Due to findings the following was ordered: ED Medical Decision Making - Medical Decision Making Patient examined by me and stable. No distress noted. Given analgesics. Gingival swelling TTP, incisor and canine teeth to upper grinded down to gum line with dental caries. Will treat with antibiotics, analgesics, and magic mouthwash. Given handout for list of community resource dental clinics. Discharged home stable. Follow up with dentist in 2-3 days. ED Disposition for MSE Clinical Impression: Gingival enlargement, Tooth decayed Disposition: - TO HOME OR SELFCARE Is pt being admited?: No Condition: Stable Instructions: Dental Caries (ED), Toothache (ED) Additional Instructions: Complete antibiotics as prescribed. Follow up with a dentist from the community resource list provided. Prescriptions: Clindamycin [Clindamycin CAP] 300 mg PO Q8H #21 cap Nystas/Diphen/Xyl Visc/Mylanta [Magic Mouthwash] 15 ml MM Q4H PRN #100 ml PRN Reason: Pain , Severe (7-10) traMADoL [Ultram 50 MG tab] 50 mg PO Q6HR PRN #10 tablet PRN Reason: Pain Referrals: [facility] [Outside] - 3-5 Days [facility] [Outside] - 3-5 Days [facility] [Outside] - 3-5 Days Time of Disposition: 14:47
== END 2019-08-31 14:47 | disposition home or self-care (01) ==
LOC: ED 12:15
DX: K02.9 Dental caries, unspecified (principal); K06.8 Other specified disorders of gingiva and edentulous alveolar ridge
CPT/HCPCS: 99282

== ENCOUNTER 2019-09-07 12:02 | Emergency (ER) | payer SELFPAY ==
[2019-09-07] MEDS ORDERED: LORazepam 1 MG TAB PO ONE (12:55)
--- NOTE | 2019-09-07 13:36 | Emergency Department Report ---
HPI - General Chief Complaint: Anxiety Time Seen by Provider: 09/07/19 12:47 - HPI HPI: Room 11 The patient is a 29-year-old female presenting with a chief complaint of chest pain and carpopedal spasms. The patient states her symptoms began last night nausea vomiting substernal chest pain and spasming of her hands and feet. Patient admits to hyperventilating earlier states that her hands and feet are numb. Patient holds both hands in a clenched fist states she has been unable to open. Patient denies shortness of breath. Patient admits to nausea currently Location: [See above] Duration: [See above] Quality: [See above] Severity: [See above] Timing: [See above] Context: [See above] Modifying factors: [See above] Associated signs and symptoms: [see above] ED Past Medical Hx - Past Medical History Hx Kidney Stones: Yes Additional medical history: Anemia - Surgical History Hx Cholecystectomy: Yes - Family History Family history: no significant - Social History Smoking Status: Former Smoker (none 3 years) Substance Use Type: None - Medications Home Medications: Home Medications Medication Instructions Recorded Confirmed Last Taken Type Ferrous Sulfate [Feosol] 325 mg PO QDAY 07/19/18 09/27/18 09/25/18 History Vit-Fe Fumar-FA [ 1 tab PO QDAY 07/19/18 09/27/18 09/25/18 History Vitamin] Clindamycin [Clindamycin CAP] 300 mg PO Q8H #21 cap 08/31/19 Unknown Rx Nystas/Diphen/Xyl Visc/Mylanta 15 ml MM Q4H PRN #100 ml 08/31/19 Unknown Rx [Magic Mouthwash] traMADoL [Ultram 50 MG tab] 50 mg PO Q6HR PRN #10 tablet 08/31/19 Unknown Rx ED Review of Systems ROS: Stated complaint: HYPERVENTILATION Other details as noted in HPI Constitutional: no symptoms reported Eyes: denies: eye pain ENT: denies: throat pain Respiratory: denies: shortness of breath Cardiovascular: chest pain Endocrine: no symptoms reported Gastrointestinal: nausea, vomiting Musculoskeletal: myalgia Neurological: denies: headache Psychiatric: anxiety Physical Exam - Physical Exam Vital Signs: Vital Signs 09/07/19 09/07/19 12:35 12:47 Temperature 98.5 F 98.8 F Pulse Rate 78 78 Respiratory 20 18 Rate Blood Pressure 122/96 Blood Pressure 122/76 [Left] O2 Sat by Pulse 98 98 Oximetry Physical Exam: GENERAL: The patient is well-developed well-nourished female sitting on chair not appearing to be in acute distress. H and sitting with fists clenched HEENT: Normocephalic. Atraumatic. Extraocular motions are intact. Patient has moist mucous membranes. NECK: Supple. Trachea midline CHEST/LUNGS: Clear to auscultation. There is no respiratory distress noted. HEART/CARDIOVASCULAR: Regular. There is no tachycardia. There is no gallop rub or murmur. 2+ DP bilaterally ABDOMEN: Abdomen is soft, nontender. Patient has normal bowel sounds. There is no abdominal distention. SKIN: There is no rash. There is no edema. There is no diaphoresis. NEURO: The patient is awake, alert, and oriented. The patient is cooperative. The patient has no focal neurologic deficits. The patient has normal speech MUSCULOSKELETAL: There patient sister easily opened by myself using direct manipulation. Patient's hand appears to relax is a do this but after manipulation the patient again makes a fist bilaterally. There is no evidence of acute injury. ED Course Vital Signs 09/07/19 09/07/19 12:35 12:47 Temperature 98.5 F 98.8 F Pulse Rate 78 78 Respiratory 20 18 Rate Blood Pressure 122/96 Blood Pressure 122/76 [Left] O2 Sat by Pulse 98 98 Oximetry ED Medical Decision Making - Lab Data Result diagrams: 09/07/19 Unknown 09/07/19 Unknown Laboratory Tests 09/07/19 09/07/19 09/07/19 Unknown Unknown Unknown WBC 3.4 L RBC 4.26 Hgb 13.6 Hct 40.3 MCV 95 MCH 32 MCHC 34 RDW 17.6 H Plt Count 280 Lymph % (Auto) 22.3 [place] % (Auto) 14.8 H Eos % (Auto) 0.0 Baso % (Auto) 0.5 Lymph # 0.8 L [place] # 0.5 Eos # 0.0 Baso # 0.0 Seg Neutrophils % 62.4 Seg Neutrophils # 2.1 D-Dimer 1061.58 H Sodium 141 Potassium 2.7 L* Chloride 99.6 Carbon Dioxide 24 Anion Gap 20 BUN 3 L Creatinine 0.6 L Estimated GFR > 60 BUN/Creatinine Ratio 5 Glucose 91 Calcium 9.6 Magnesium 1.20 L Total Creatine Kinase 188 H CK-MB (CK-2) 1.4 CK-MB (CK-2) Rel Index 0.7 Troponin T < 0.010 HCG, Qual 09/07/19 Unknown WBC RBC Hgb Hct MCV MCH MCHC RDW Plt Count Lymph % (Auto) [place] % (Auto) Eos % (Auto) Baso % (Auto) Lymph # [place] # Eos # Baso # Seg Neutrophils % Seg Neutrophils # D-Dimer Sodium Potassium Chloride Carbon Dioxide Anion Gap BUN Creatinine Estimated GFR BUN/Creatinine Ratio Glucose Calcium Magnesium Total Creatine Kinase CK-MB (CK-2) CK-MB (CK-2) Rel Index Troponin T HCG, Qual Negative - EKG Data -: EKG Interpreted by Me EKG shows normal: sinus rhythm - EKG Data When compared to previous EKG there are: previous EKG unavailable Interpretation: nonspecific ST-T wave primo (T-wave inversions in leads 3, aVF, V2, V3. U wave in lead V5) - Differential Diagnosis anxiety, hypokalemia, hypocalcemia Critical care attestation.: If time is entered above; I have spent that time in minutes in the direct care of this critically ill patient, excluding procedure time. ED Disposition Clinical Impression: Carpopedal spasm, Hypomagnesemia, Hypokalemia Disposition: 09 OP ADMIT IP TO THIS HOSP Is pt being admited?: Yes Does the pt Need Aspirin: No Condition: Fair Referrals: PRIMARY CARE, [Primary Care Provider] - 3-5 Days Time of Disposition: 15:28 (hospitalist paged (Dr Castro))
[2019-09-07 14:34] LABS: Basophils % (Auto) 0.5 % (0.0-1.8); Hematocrit 40.3 % (30.3-42.9); Hemoglobin 13.6 gm/dl (10.1-14.3); Lymphocytes # (Auto) 0.8 K/mm3 (1.2-5.4); Lymphocytes % (Auto) 22.3 % (13.4-35.0); Mean Corpuscular HGB Conc 34 % (30-34); Mean Corpuscular Volume 95 fl (79-97); Monocytes # (Auto) 0.5 K/mm3 (0.0-0.8); Monocytes % (Auto) 14.8 % (0.0-7.3); Platelet Count 280 K/mm3 (140-440); Red Blood Count 4.26 M/mm3 (3.65-5.03); Red Cell Distribution Width 17.6 % (13.2-15.2)
[2019-09-07 14:50] LABS: Creatine Kinase MB 1.4 ng/mL (0.0-4.0)
[2019-09-07 14:51] LABS: BUN/Creatinine Ratio 5; Blood Urea Nitrogen 3 mg/dL (7-17); Calcium 9.6 mg/dL (8.4-10.2); Hemolysis Index 0
[2019-09-07] MEDS ORDERED: MAGNESIUM SULFATE 2 GM/50 ML BAG IV ONE (15:10)
[2019-09-07] MEDS ORDERED: POTASSIUM CHLORIDE ER 20 MEQ TAB PO ONE (15:11)
--- NOTE | 2019-09-07 20:45 | Cat Scan Report ---
CTA CHEST WITH IV CONTRAST INDICATION: CP, elevated dimer CONTRAST: 75 cc Omnipaque 350 IV COMPARISON: None available. Three-plane MIP reconstructions were produced. All CT scans at this location are performed using CT d ose reduction for ALARA by means of automated exposure control. FINDINGS: No significant axillary or chest wall abnormalities are seen. Visualized portions of the up per abdomen show fatty infiltration of the liver. No pleural effusions are seen. No pneumothorax or p neumomediastinum are noted. Mild motion artifact is seen in the lung luis. Lung luis appear clear . No mediastinal or hilar masses are seen. Aorta shows no aneurysmal dilatation or evidence of dissection. Good opacification of the pulmonary arterial system was achieved. Other is mild motion artifact, I do not see convincing evidence of pulmonary thromboembolism. IMPRESSION: No obvious acute abnormalities are seen Signer Name: Eugenio Vasquez MD Signed: 09/07/2019 8:41 PM Workstation Name: [id number]
[2019-09-07 21:21] VITALS: BP 120/80
== END 2019-09-07 22:08 | disposition admitted as inpatient to this hospital (09) ==
LOC: ED 12:02
DX: E83.42 Hypomagnesemia (principal); E87.6 Hypokalemia; R29.0 Tetany; Z87.891 Personal history of nicotine dependence
CPT/HCPCS: 36415; 71275; 80048; 82550; 82553; 83735; 84484; 84703; 85025; 85379; 93005; 93010; 96365; 99285; J3475; Q9967

== ENCOUNTER 2021-06-25 11:42 | Emergency (ER) | payer OTHER ==
[2021-06-25] MEDS ORDERED: LORazepam 2 MG/ML VIAL IV PRN (11:48)
--- NOTE | 2021-06-25 11:54 | Emergency Department Report ---
ED Seizure HPI - General Stated Complaint: SEIZURE Time Seen by Provider: 06/25/21 11:48 - History of Present Illness Initial Comments: Patient presents primarily secondary to a seizure. She was a gas [employer]. This was witnessed. According to EMS, bystanders report a generalized tonic-clonic seizure. They state that the patient was postictal upon their arrival. Upon arrival here, the patient is not postictal. She is tremulous. Paramedics state that they now have more history and that she does have a history of alcohol consumption. They believe that this might be alcohol related. There is no history of recent injury or trauma. Patient denies family history of seizures. She is never had a seizure before. She admits that she drinks at least 6 beers a day. She does not recall when her last drink was. She has no chest pain or back pain. There is no vomiting or diarrhea. She has not been sick recently. She does not have any recollection of the events earlier this morning. - Related Data Previous Rx's Medication Instructions Recorded Last Taken Type Magnesium Oxide [Mag-Ox] 400 mg PO QDAY #30 tablet 06/25/21 Unknown Rx Allergies Allergy/AdvReac Type Severity Reaction Status Date / Time No Known Allergies Allergy Verified 06/25/21 13:12 ED Review of Systems ROS: Stated complaint: SEIZURE Other details as noted in HPI Comment: All other systems reviewed and negative Constitutional: denies: fever Eyes: denies: eye pain ENT: denies: throat pain Respiratory: denies: cough Cardiovascular: denies: chest pain Endocrine: denies: unexplained weight gain Gastrointestinal: denies: abdominal pain Genitourinary: denies: dysuria Musculoskeletal: denies: back pain Skin: denies: rash Neurological: as per HPI Hematological/Lymphatic: denies: easy bruising ED Past Medical Hx - Past Medical History Hx Hypertension: No Hx Congestive Heart Failure: No Hx Diabetes: No Hx Deep Vein Thrombosis: No Hx Renal Disease: No Hx Sickle Cell Disease: No Hx Seizures: No Hx Kidney Stones: Yes Hx Asthma: No Hx COPD: No Hx HIV: No Additional medical history: Anemia - Surgical History Hx Cholecystectomy: Yes - Family History Family history: hypertension - Social History Smoking Status: Former Smoker (none 3 years) Substance Use Type: Alcohol (Regular) - Medications Home Medications: Home Medications Medication Instructions Recorded Confirmed Last Taken Type Magnesium Oxide [Mag-Ox] 400 mg PO QDAY #30 tablet 06/25/21 Unknown Rx ED Physical Exam - General Limitations: No Limitations, Other (Pulse ox is noted and normal) General appearance: alert, in no apparent distress - Head Head exam: Present: atraumatic, normocephalic, normal inspection - Eye Eye exam: Present: normal appearance, EOMI. Absent: scleral icterus - ENT ENT exam: Present: normal exam, mucous membranes moist, normal external ear exam - Neck Neck exam: Present: normal inspection. Absent: meningismus - Respiratory Respiratory exam: Present: normal lung sounds bilaterally. Absent: respiratory distress - Cardiovascular Cardiovascular Exam: Present: normal rhythm, tachycardia - GI/Abdominal GI/Abdominal exam: Present: soft. Absent: tenderness - Extremities Exam Extremities exam: Present: normal capillary refill. Absent: pedal edema - Back Exam Back exam: Absent: CVA tenderness (R), CVA tenderness (L) - Neurological Exam Neurological exam: Present: alert, oriented X3, CN II-XII intact, other (Tremulous). Absent: motor sensory deficit - Psychiatric Psychiatric exam: Present: normal affect, normal mood - Skin Skin exam: Present: warm, dry ED Course Vital Signs 06/25/21 06/25/21 06/25/21 11:53 11:55 12:01 Temperature 98 F Pulse Rate 100 H 89 87 Respiratory 23 17 Rate O2 Sat by Pulse 99 100 Oximetry 06/25/21 12:10 Temperature Pulse Rate Respiratory 16 Rate O2 Sat by Pulse 97 Oximetry - Reevaluation(s) Reevaluation #1: 06/25/21 11:45 EMS was met upon arrival. IV and labs ordered. CIWA protocol was started. Reevaluation #2: 06/25/21 13:41 Electrolytes were noted. Magnesium was ordered. Patient will likely require admission. CIWA evaluation is still pending. Reevaluation #3: 06/25/21 14:02 CIWA score was noted. Patient states she feels better. ED Medical Decision Making - Lab Data Result diagrams: 06/25/21 11:50 06/25/21 11:48 Critical Care Time: No Critical care attestation.: If time is entered above; I have spent that time in minutes in the direct care of this critically ill patient, excluding procedure time. ED Disposition Clinical Impression: Hypomagnesemia Alcohol withdrawal seizure Qualifiers: Complication of substance-induced condition: with unspecified complication Qualified Code(s): F10.239 - Alcohol dependence with withdrawal, unspecified; R5 6.9 - Unspecified convulsions Disposition: 01 HOME / SELF CARE / HOMELESS Is pt being admited?: No Condition: Stable Instructions: Hypomagnesemia, Alcohol Withdrawal Syndrome, Finding Treatment for Addiction, Managing Non-Epileptic Seizures, Adult Additional Instructions: Drink plenty water. Stop drinking alcohol. Seek medical attention to stop drinking alcohol. Return for any problems or concerns. Prescriptions: Magnesium Oxide [Mag-Ox] 400 mg PO QDAY #30 tablet
[2021-06-25 12:42] LABS: Hematocrit 35.3 % (30.3-42.9); Hemoglobin 11.5 gm/dl (10.1-14.3); Mean Corpuscular HGB Conc 33 % (30-34); Mean Corpuscular Volume 85 fl (79-97); Red Blood Count 4.17 M/mm3 (3.65-5.03)
[2021-06-25 13:05] LABS: Platelet Count 83 K/mm3 (140-440); Red Cell Distribution Width 21.3 % (13.2-15.2)
[2021-06-25 13:21] LABS: Alanine Aminotransferase 63 units/L (7-56); Blood Urea Nitrogen 3 mg/dL (7-17); Calcium 9.5 mg/dL (8.4-10.2); Hemolysis Index 3
[2021-06-25 13:23] LABS: BUN/Creatinine Ratio 6
[2021-06-25 13:24] LABS: Bilirubin,Direct < 0.2 mg/dL (0-0.2)
[2021-06-25] MEDS ORDERED: MAGNESIUM SULFATE 2 GM/50 ML BAG IV ONE (13:41)
[2021-06-25 14:43] VITALS: BP 135/96
== END 2021-06-25 14:44 | disposition home or self-care (01) ==
LOC: ED 11:42
DX: F10.231 Alcohol dependence with withdrawal delirium (principal); E83.42 Hypomagnesemia; R56.9 Unspecified convulsions; Z87.442 Personal history of urinary calculi; D64.9 Anemia, unspecified; Z98.890 Other specified postprocedural states; Z87.891 Personal history of nicotine dependence
CPT/HCPCS: 36415; 80048; 80076; 83735; 84100; 84703; 85027; 99284; J2060; J3475